=== PATIENT | female | born 1995 | race Caucasian/White ===

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

== ENCOUNTER → 2017-02-16 | Outpatient (CLI) | payer OTHER ==
--- NOTE | 2017-02-17 09:11 | MR ---
EXAMINATION TYPE: MR brain wo con DATE OF EXAM: 02/16/2017 COMPARISON: 09/12/2011 HISTORY: Amnesia/Memory disorder T1-weighted sagittal, T2, FLAIR, and diffusion axial, and T2 coronal coronal views of the brain are s ubmitted. There is no evidence of acute ischemia. The ventricles, basal cisterns, and sulci overlying the conv exities are consistent with the patient's age. There is no mass effect. Craniocervical junction maintained. Sella turcica has a normal appearance. No cerebellopontine angle mass. Changes of chronic sinusitis noted. There are areas of nonspecific abnormal signal within the white matter the largest in the right parie janina lobe measuring 6 mm unchanged from the previous exam. IMPRESSION: 1. Nonspecific abnormal signal in the white matter. May represent prominent Virchow-Aldair spaces. Oth er etiologies including microvascular ischemia or demyelinating process not entirely excluded. 2. Changes of chronic sinusitis.
== END | disposition home or self-care (01) ==
LOC: RADMRIMAIN 20:44
PROVIDERS: ATTEND Psychiatry & Neurology Neurology
DX: R41.3 Other amnesia (principal); J32.9 Chronic sinusitis, unspecified
CPT/HCPCS: 70551

== ENCOUNTER → 2018-04-09 | Outpatient (CLI) | payer OTHER | LOC: LABWHC1 15:06 | PROVIDERS: ATTEND Obstetrics & Gynecology | DX: Z34.90 Encounter for supervision of normal pregnancy, unspecified, unspecified trimester (principal); Z3A.00 Weeks of gestation of pregnancy not specified | CPT/HCPCS: 36415; 84702 ==

== ENCOUNTER → 2021-04-16 | Outpatient (CLI) | payer BC ==
--- NOTE | 2021-04-17 04:44 | MR ---
EXAMINATION TYPE: MR brain wo con DATE OF EXAM: 04/16/2021 COMPARISON: 02/16/2017 HISTORY: Numbness of legs and arms for several years. Multiplanar multiecho imaging of the brain without contrast. Ventricles have normal size. There is no mass effect nor midline shift. There is no sign of intracran ial hemorrhage. Diffusion images show no evidence of an acute infarct. Sierra-white matter structures h ave normal signal pattern. There is no evidence of cerebral edema. Brainstem is intact. Corpus callos um is intact. Sella turcica appears normal. There is no evidence of orbital mass. IMPRESSION: Negative MR scan of the brain. No adverse change compared to old exam.
== END | disposition home or self-care (01) ==
LOC: RADMRIMAIN 19:55
PROVIDERS: ATTEND Physician Assistant
DX: R20.0 Anesthesia of skin (principal)
CPT/HCPCS: 70551

== ENCOUNTER 2022-09-12 10:26 | Emergency (ER) | payer BC, OTHER ==
[2022-09-12 10:44] VITALS: TEMP 97.3
[2022-09-12] MEDS ORDERED: SODIUM CHLORIDE 0.9% 1,000 ML IV ONE (11:31)
[2022-09-12] MEDS ORDERED: ONDANSETRON 4 MG/2 ML VIAL IVP STA (11:31)
--- NOTE | 2022-09-12 11:40 | ED ---
General Adult HPI - General Chief complaint: Nausea/Vomiting/Diarrhea Stated complaint: vomiting - 6 weeks Time Seen by Provider: 09/12/22 11:10 Source: patient, RN notes reviewed Mode of arrival: ambulatory Limitations: no limitations - History of Present Illness Initial comments: 26-year-old female who is presents to the emergency department with a chief complaint of nausea and vomiting. Patient reports that her symptoms started approximately one week ago. She reports that she takes fluoxetine and other mood stabilizers and has not been taking her antipsychotics for 1 week. She reports her last menstrual period was 08/01/2022. She reports that she is unable to make an appointment with her psychiatrist as they do not h ave any open appointments for "months." She denies any dizziness, lightheadedness, chest pain, shortness of breath, abdominal pain. She denies any vaginal bleeding, vaginal cramping, low back pain. - Related Data Home Medications Medication Instructions Recorded Confirmed DULoxetine HCL [Cymbalta] 60 mg PO DAILY 09/12/22 09/12/22 Ferrous Sulfate [Feosol] 325 mg PO DAILY 09/12/22 09/12/22 Omeprazole [PriLOSEC] 20 mg PO DAILY 09/12/22 09/12/22 Topiramate [Topamax] 25 mg PO BID 09/12/22 09/12/22 cloNIDine HCL [Catapres] 0.15 mg PO HS 09/12/22 09/12/22 lamoTRIgine [LaMICtal] 100 mg PO DAILY 09/12/22 09/12/22 Previous Rx's Medication Instructions Recorded DULoxetine HCL [Cymbalta] 60 mg PO DAILY #30 cap 09/12/22 Allergies Allergy/AdvReac Type Severity Reaction Status Date / Time azithromycin Allergy Rash/Hives Verified 09/12/22 12:18 [From Zithromax Z-Roe] Review of Systems ROS Statement: Those systems with pertinent positive or pertinent negative responses have been documented in the HPI. ROS Other: All systems not noted in ROS Statement are negative. Past Medical History Past Medical History: Asthma History of Any Multi-Drug Resistant Organisms: None Reported Additional Past Surgical History / Comment(s): Heart Past Psychological History: No Psychological Hx Reported Smoking Status: Never smoker Past Alcohol Use History: None Reported Past Drug Use History: None Reported General Exam Limitations: no limitations General appearance: alert, in no apparent distress Head exam: Present: atraumatic, normocephalic, normal inspection Eye exam: Present: normal appearance, PERRL, EOMI. Absent: scleral icterus, conjunctival injection, periorbital swelling ENT exam: Present: normal exam, mucous membranes moist Neck exam: Present: normal inspection. Absent: tenderness, meningismus, lymphadenopathy Respiratory exam: Present: normal lung sounds bilaterally. Absent: respiratory distress, wheezes, rales, rhonchi, stridor Cardiovascular Exam: Present: regular rate, normal rhythm, normal heart sounds. Absent: systolic murmur, diastolic murmur, rubs, gallop, clicks GI/Abdominal exam: Present: soft, normal bowel sounds. Absent: distended, tenderness, guarding, rebound, rigid Extremities exam: Present: normal inspection, full ROM, normal capillary refill. Absent: tenderness, pedal edema, joint swelling, calf tenderness Back exam: Present: normal inspection Neurological exam: Present: alert, oriented X3, CN II-XII intact Psychiatric exam: Present: normal affect, normal mood Skin exam: Present: warm, dry, intact, normal color. Absent: rash Course Vital Signs 09/12/22 09/12/22 09/12/22 10:42 14:30 15:30 Temperature 97.3 F L Pulse Rate 83 79 80 Respiratory 18 18 16 Rate Blood Pressure 92/62 108/70 111/75 O2 Sat by Pulse 100 100 100 Oximetry Medical Decision Making - Medical Decision Making Was pt. sent in by a medical professional or institution (, PA, BUS ESCORT, urgent care, hospital, or detention...) When possible be specific @ -[No] Did you speak to anyone other than the patient for history (EMS, parent, family, police, friend...)? What history was obtained from this source @ -[No] Did you review nursing and triage notes (agree or disagree)? Why? @ -[I reviewed and agree with nursing and triage notes] Were old charts reviewed (outside hosp., previous admission, EMS record, old EKG, old radiological studies, urgent care reports/EKG's, detention records)? Report findings @ -[No old charts were reviewed] Differential Diagnosis (chest pain, altered mental status, abdominal pain women, abdominal pain men, vaginal bleeding, weakness, fever, dyspnea, syncope, headache, dizziness, GI bleed, back pain, seizure, CVA, palpatations, mental health, musculoskeletal)? @ -[not applicable] EKG interpreted by me (3pts min.). @ -[As above] X-rays interpreted by me (1pt min.). @ -[None done] CT interpreted by me (1pt min.). @ -[None done] U/S interpreted by me (1pt. min.). @ -[None done] What testing was considered but not performed or refused? (CT, X-rays, U/S, labs)? Why? @ -[None] What meds were considered but not given or refused? Why? @ -[None] Did you discuss the management of the patient with other professionals (professionals i.e. , PA, BUS ESCORT, lab, RT, psych nurse, clinical social worker, professor of history, teacher, community service officer coordinator, wrapper caser)? Give summary @ -[No] Was smoking cessation discussed for >3mins.? @ -[No] Was critical care preformed (if so, how long)? @ -[No] Were there social determinants of health that impacted care today? How? (Homelessness, low income, unemployed, alcoholism, drug addiction, transportation, low edu. Level, literacy, decrease access to med. care, retirement, rehab)? @ -[No] Was there de-escalation of care discussed even if they declined (Discuss DNR or withdrawal of care, Hospice)? DNR status @ -[No] What co-morbidities impacted this encounter? (DM, HTN, Smoking, COPD, CAD, Cancer, CVA, ARF, Chemo, Hep., AIDS, mental health diagnosis, sleep apnea, morbid obesity)? @ -[None] Was patient admitted / discharged? Hospital course, mention meds given and route, prescriptions, significant lab abnormalities, going to OR and other pertinent info. @ -Discharged. This is a 24-year-old male who presents to the emergency department with medication re-fill.. Patient had a thorough history and physical exam performed while in the ED. Physical exam essentially unremarkable heart rate regular rate and rhythm, lungs clear to all physician bilaterally abdomen is soft and nontender. Patient had lab work which was essentially unremarkable. She was given 1 L IV fluids and Zofran with symptomatic relief. She was given a prescription for Cymbalta. I discussed the results in detail with the patient verbalized understanding and all questions were addressed. Return precautions were discussed at length. He was discharged in stable condition. He was encouraged to follow-up with PCP in 1-2 days Undiagnosed new problem with uncertain prognosis? @ -[No] Drug Therapy requiring intensive monitoring for toxicity (Heparin, Nitro, Insulin, Cardizem)? @ -[No] Were any procedures done? @ -[No] Diagnosis/symptom? @ -nausea and vomiting - medication re-fill Acute, or Chronic, or Acute on Chronic? @ -acute Uncomplicated (without systemic symptoms) or Complicated (systemic symptoms)? @ -uncomplicated Side effects of treatment? @ -[No] Exacerbation, Progression, or Severe Exacerbation? @ -[No] Poses a threat to life or bodily function? How? (Chest pain, USA, SC, pneumonia, PE, COPD, DKA, ARF, appy, cholecystitis, CVA, Diverticulitis, Homicidal, Suicidal, threat to staff... and all critical care pts) @ -low likelihood - Lab Data Result diagrams: 09/12/22 11:59 09/12/22 11:30 Lab Results 09/12/22 09/12/22 09/12/22 Range/Units 11:30 11:59 11:59 WBC 8.9 (3.8-10.6) k/uL RBC 4.71 (3.80-5.40) m/uL Hgb 14.2 (11.4-16.0) gm/dL Hct 43.0 (34.0-46.0) % MCV 91.2 (80.0-100.0) fL MCH 30.1 (25.0-35.0) pg MCHC 33.0 (31.0-37.0) g/dL RDW 12.0 (11.5-15.5) % Plt Count 290 (150-450) k/uL MPV 7.8 Neutrophils % 68 % Lymphocytes % 23 % Monocytes % 6 % Eosinophils % 1 % Basophils % 0 % Neutrophils # 6.1 (1.3-7.7) k/uL Lymphocytes # 2.1 (1.0-4.8) k/uL Monocytes # 0.5 (0-1.0) k/uL Eosinophils # 0.1 (0-0.7) k/uL Basophils # 0.0 (0-0.2) k/uL Sodium 137 (137-145) mmol/L Potassium 5.0 (3.5-5.1) mmol/L Chloride 105 (98-107) mmol/L Carbon Dioxide 20 L (22-30) mmol/L Anion Gap 12 mmol/L BUN 9 (7-17) mg/dL Creatinine 0.42 L (0.52-1.04) mg/dL Est GFR (CKD-EPI)AfAm >90 (>60 ml/min/1.73 sqM) Est GFR (CKD-EPI)NonAf >90 (>60 ml/min/1.73 sqM) Glucose 76 (74-99) mg/dL Calcium 9.7 (8.4-10.2) mg/dL Total Bilirubin 2.0 H (0.2-1.3) mg/dL AST 27 (14-36) U/L ALT 15 (4-34) U/L Alkaline Phosphatase 64 (38-126) U/L Total Protein 8.0 (6.3-8.2) g/dL Albumin 4.6 (3.5-5.0) g/dL HCG, Quant 06057.5 mIU/mL Urine Color Light Yellow Urine Appearance Clear (Clear) Urine pH 5.5 (5.0-8.0) Ur Specific [place] 1.005 (1.001-1.035) Urine Protein Negative (Negative) Urine Glucose (UA) Negative (Negative) Urine Ketones 1+ H (Negative) Urine Blood Negative (Negative) Urine Nitrite Negative (Negative) Urine Bilirubin Negative (Negative) Urine Urobilinogen <2.0 (<2.0) mg/dL Ur Leukocyte Esterase Negative (Negative) Urine HCG, Qual (Not Detectd) 09/12/22 Range/Units 11:59 WBC (3.8-10.6) k/uL RBC (3.80-5.40) m/uL Hgb (11.4-16.0) gm/dL Hct (34.0-46.0) % MCV (80.0-100.0) fL MCH (25.0-35.0) pg MCHC (31.0-37.0) g/dL RDW (11.5-15.5) % Plt Count (150-450) k/uL MPV Neutrophils % % Lymphocytes % % Monocytes % % Eosinophils % % Basophils % % Neutrophils # (1.3-7.7) k/uL Lymphocytes # (1.0-4.8) k/uL Monocytes # (0-1.0) k/uL Eosinophils # (0-0.7) k/uL Basophils # (0-0.2) k/uL Sodium (137-145) mmol/L Potassium (3.5-5.1) mmol/L Chloride (98-107) mmol/L Carbon Dioxide (22-30) mmol/L Anion Gap mmol/L BUN (7-17) mg/dL Creatinine (0.52-1.04) mg/dL Est GFR (CKD-EPI)AfAm (>60 ml/min/1.73 sqM) Est GFR (CKD-EPI)NonAf (>60 ml/min/1.73 sqM) Glucose (74-99) mg/dL Calcium (8.4-10.2) mg/dL Total Bilirubin (0.2-1.3) mg/dL AST (14-36) U/L ALT (4-34) U/L Alkaline Phosphatase (38-126) U/L Total Protein (6.3-8.2) g/dL Albumin (3.5-5.0) g/dL HCG, Quant mIU/mL Urine Color Urine Appearance (Clear) Urine pH (5.0-8.0) Ur Specific [place] (1.001-1.035) Urine Protein (Negative) Urine Glucose (UA) (Negative) Urine Ketones (Negative) Urine Blood (Negative) Urine Nitrite (Negative) Urine Bilirubin (Negative) Urine Urobilinogen (<2.0) mg/dL Ur Leukocyte Esterase (Negative) Urine HCG, Qual Detected (Not Detectd) Disposition Clinical Impression: Medication refill Disposition: HOME SELF-CARE Condition: Stable Instructions (If sedation given, give patient instructions): Acute Nausea and Vomiting (ED) Additional Instructions: These return to the nearest emergency department if symptoms worsen or persist Follow-up with psychiatrist within 1-2 days Prescriptions: DULoxetine HCL [Cymbalta] 60 mg PO DAILY #30 cap Is patient prescribed a controlled substance at d/c from ED?: No Referrals: Florian Weaver MD [Primary Care Provider] - 1-2 days Time of Disposition: 15:19
[2022-09-12 12:33] LABS: Basophils % (A) 0 %; Eosinophils # (A) 0.1 k/uL (0-0.7); Eosinophils % (A) 1 %; HGB 14.2 gm/dL (11.4-16.0); Lymphocytes # (A) 2.1 k/uL (1.0-4.8); Lymphocytes % (A) 23 %; MCH 30.1 pg (25.0-35.0); MCV 91.2 fL (80.0-100.0); Mean Platelet Volume 7.8; Monocytes # (A) 0.5 k/uL (0-1.0); Monocytes % (A) 6 %; Neutrophils # (A) 6.1 k/uL (1.3-7.7); Neutrophils % (A) 68 %; Platelet Count 290 k/uL (150-450); RBC 4.71 m/uL (3.80-5.40); WBC 8.9 k/uL (3.8-10.6)
[2022-09-12 13:06] LABS: ALT 15 U/L (4-34); African American GFR (CKD) >90 (>60 ml/min/1.73 sqM); Albumin 4.6 g/dL (3.5-5.0); Anion Gap 12 mmol/L; Blood Urea Nitrogen 9 mg/dL (7-17); Calcium 9.7 mg/dL (8.4-10.2); Carbon Dioxide 20 mmol/L (22-30); Chloride 105 mmol/L (98-107); Glucose 76 mg/dL (74-99); Non-African American GFR(CKD) >90 (>60 ml/min/1.73 sqM); Sodium 137 mmol/L (137-145)
[2022-09-12 13:07] LABS: AST 27 U/L (14-36); Alkaline Phosphatase 64 U/L (38-126)
[2022-09-12 14:02] LABS: HCG,Quantitative Serum 20583.5 mIU/mL
[2022-09-12 15:00] LABS: Appearance,Urine Clear (Clear); Bilirubin,Urine Negative (Negative); Blood,Urine Negative (Negative); Color,Urine Light Yellow; Glucose,Urine (UA) Negative (Negative); Ketones,Urine 1+ (Negative); Leukocyte Esterase,Urine Negative (Negative); Nitrite,Urine Negative (Negative); PH, Urine 5.5 (5.0-8.0); Protein,Urine Negative (Negative); Specific Gravity,Urine 1.005 (1.001-1.035); Urobilinogen,Urine <2.0 mg/dL (<2.0)
[2022-09-12 15:44] VITALS: BP 111/75; PULSE 80; RESP 16
== END 2022-09-12 15:30 | disposition home or self-care (01) ==
LOC: EC 10:26
DX: O21.9 Vomiting of pregnancy, unspecified (principal); O99.511 Diseases of the respiratory system complicating pregnancy, first trimester; J45.909 Unspecified asthma, uncomplicated; Z76.0 Encounter for issue of repeat prescription; Z3A.01 Less than 8 weeks gestation of pregnancy; Z79.899 Other long term (current) drug therapy; Z88.1 Allergy status to other antibiotic agents
CPT/HCPCS: 36415; 80053; 85025; 81003; 81025; 84702; 99284; 96374; 96361; J2405

== ENCOUNTER 2022-12-13 12:51 | Outpatient (CLI) | payer OTHER ==
[2022-12-13 13:46] VITALS: BP 111/64; PULSE 90; RESP 16; TEMP 97.3
--- NOTE | 2022-12-13 18:33 | P.MSEPDOC ---
Presenting Problems - Arrival Data Date of Arrival on Unit: 12/13/22 Time of Arrival on Unit: 12:45 Mode of Transport: Ambulatory - Complaint OB-Reason for Admission/Chief Complaint: Decreased Movement Medical History - Gestational Age Gestational Age by JOSÉ LUIS (wks/days): 19 Weeks and 1 Days - History Comment: not feeling baby move Review of Systems - Review of Systems Constitutional: No problems Breast: No problems ENT: No problems Cardiovascular: No problems Respiratory: No problems Gastrointestinal: No problems Genitourinary: No problems Musculoskeletal: No problems Neurological: No problems Skin: No problems Vital Signs - Temperature Temperature: 97.3 F Temperature Source: Temporal Artery Scan - Pulse Right Apical Pulse Rate: 90 Pulse Assessment Method: Automatic Cuff - Respirations Respiratory Rate: 16 Oxygen Delivery Method: Room Air - Blood Pressure Right Arm Blood Pressure: 111/64 Blood Pressure Mean: 79 Blood Pressure Source: Automatic Cuff Medical Screen Scoring - Uterine Contractions Intensity: Absent - Assessment - Baby A Baseline FHR: 150 Heart Rate - NICHD Category: Category I (Normal) Physician Notification - Physician Notified Physician Notified Date: 12/13/22 Physician Notified Time: 13:35 Physician: Zoya Dickson Order Received: Yes (dischargem instructions) Maternal Triage Index - Scheduled/Requesting Priority 5 Scheduled/Requesting Priority 5: Yes Criteria Met for Priority 5: came from office. 19 weeks. feeling baby now Disposition - Disposition OB Disposition: Discharge to home, Written follow up instructions reviewed Discharge Date: 12/13/22 Discharge Time: 13:50 I agree with the RN Medical Screening Exam: Yes Case reviewed; plan agreed upon as documented in EMR&OBIX.: Yes Diagnosis: DECREASED MOVEMENTS, SECOND TRIMESTER, UNSP
== END 2022-12-13 13:50 | disposition home or self-care (01) ==
LOC: FBPOP 12:51
PROVIDERS: ATTEND Obstetrics & Gynecology
DX: O36.8120 Decreased fetal movements, second trimester, not applicable or unspecified (principal); Z3A.19 19 weeks gestation of pregnancy; Z91.013 Allergy to seafood; Z88.1 Allergy status to other antibiotic agents
CPT/HCPCS: 99213

== ENCOUNTER → 2023-04-07 | Outpatient (CLI) | payer OTHER ==
[2023-04-07 17:07] VITALS: BP 127/77; PULSE 93; RESP 17
--- NOTE | 2023-06-18 16:04 | P.MSEPDOC ---
Presenting Problems - Arrival Data Date of Arrival on Unit: 04/07/23 Time of Arrival on Unit: 15:15 Mode of Transport: Ambulatory - Complaint OB-Reason for Admission/Chief Complaint: Rule Out SROM Comment: pt presents to triage for possible SROM at 1330 today, states she is still leaking Medical History - Information : 1 Para: 0 Term: 0 : 0 Abortions: Spontaneous or Elective: 0 Number of Living Children: 0 - Gestational Age Gestational Age by JOSÉ LUIS (wks/days): 35 Weeks and 4 Days Review of Systems - Review of Systems Constitutional: No problems Breast: No problems ENT: No problems Cardiovascular: No problems Respiratory: No problems Gastrointestinal: No problems Genitourinary: No problems Musculoskeletal: No problems Neurological: No problems Skin: No problems Vital Signs - Pulse Right Brachial Pulse Rate: 93 Pulse Assessment Method: Automatic Cuff - Respirations Respiratory Rate: 17 Oxygen Delivery Method: Room Air - Blood Pressure Right Arm Blood Pressure: 127/77 Blood Pressure Mean: 93 Blood Pressure Source: Automatic Cuff Medical Screen Scoring - Cervical Exam Dilation (cm): 0 - Uterine Contractions Intensity: Mild Resting: Soft to palpation - Assessment - Baby A Baseline FHR: 150 Heart Rate - NICHD Category: Category I (Normal) NST: Reactive Physician Notification - Physician Notified Physician Notified Date: 04/07/23 Physician Notified Time: 16:20 Physician: Zoya Dickson Order Received: Yes - Notification Comment Comment: amniosure negative, cervical exam closed and thick, reactive nst, orders to discharge pt home follow up on Monday in the office with Dr. Garcia and MFM on 04/13 at scheduled appt Maternal Triage Index - Maternal Triage Index Presenting for scheduled procedure w/no complaint: No - Stat/Priority 1 Stat Priority 1: No - Urgent/Priority 2 Urgent Priority 2: No - Prompt/Priority 3 Prompt Priority 3: Yes Criteria Met for Priority 3: pt presents to triage for possible SROM at 1330 today, states she is still leaking Disposition - Disposition OB Disposition: Triage, Discharge to home, Written follow up instructions reviewed Discharge Date: 04/07/23 Discharge Time: 16:35 I agree with the RN Medical Screening Exam: Yes Case reviewed; plan agreed upon as documented in EMR&OBIX.: Yes Diagnosis: FALSE LABOR BEFORE 37 COMPLETED WEEKS OF GEST, THIRD TRI
== END ==
LOC: FBPOP 15:15
PROVIDERS: ATTEND Obstetrics & Gynecology
DX: Z53.9 Procedure and treatment not carried out, unspecified reason (principal)
CPT/HCPCS: 59025; 84112; G0463; 99213

== ENCOUNTER 2023-05-01 06:00 | Inpatient (IN) | payer BC, OTHER ==
[2023-05-01] MEDS ORDERED: TRANEXAMIC 1,000 MG/100ML-NACL 1,000 MG in EMPTY BAG 1 BAG IV PRN (06:30)
[2023-05-01] MEDS ORDERED: CARBOPROST TROMETHAMINE 250 MCG/ML 1 ML AMP IM PRN (06:30)
[2023-05-01] MEDS ORDERED: miSOPROStoL 200 MCG TAB PO PRN (06:30)
[2023-05-01] MEDS ORDERED: OXYTOCIN 10 UNIT/ML 1 ML VIAL IM PRN (06:30)
[2023-05-01] MEDS ORDERED: TERBUTALINE 1 MG/ML VIAL SQ PRN (06:30)
[2023-05-01] MEDS ORDERED: OXYTOCIN 30 UNITS/500 ML NS 30 UNIT in SALINE 1 500ML.BAG IV SCH ×2 (06:30→17:00)
[2023-05-01] MEDS ORDERED: METHYLERGONOVINE 0.2 MG/ML 1 ML AMP IM PRN (06:30)
[2023-05-01] MEDS ORDERED: LIDOCAINE 0.5% (PF) 5 MG/ML (50 ML SDV) SQ PRN (06:30)
[2023-05-01 06:48] LABS: Basophils % (A) 0 %; Eosinophils # (A) 0.1 k/uL (0-0.7); Eosinophils % (A) 1 %; HCT 35.6 % (34.0-46.0); HGB 12.1 gm/dL (11.4-16.0); Lymphocytes # (A) 2.4 k/uL (1.0-4.8); Lymphocytes % (A) 27 %; MCH 31.6 pg (25.0-35.0); MCHC 33.9 g/dL (31.0-37.0); MCV 93.2 fL (80.0-100.0); Mean Platelet Volume 9.5; Monocytes # (A) 0.5 k/uL (0-1.0); Monocytes % (A) 6 %; Neutrophils # (A) 5.8 k/uL (1.3-7.7); Neutrophils % (A) 64 %; Platelet Count 186 k/uL (150-450); RBC 3.82 m/uL (3.80-5.40); RDW 13.1 % (11.5-15.5); WBC 9.1 k/uL (3.8-10.6)
[2023-05-01] MEDS: LACTATED RINGERS 1,000 ML IV SCH ×2 (07:01→11:17)
--- NOTE | 2023-05-01 12:39 | P.ANPRN ---
Procedure Note - Anesthesia - Epidural/Spinal Epidural Continuous Time Out Performed: Yes Date of Procedure: 05/01/23 Procedure Start Time: 10:45 Procedure Stop Time: 10:55 Location of Patient: OB Indication: Acute Post-Operative Pain, Analgesia, Requested by Surgeon Sedation Type: Awake Preparation: Sterile Prep Position: Sitting Catheter Depth at Skin (cm): 10 Catheter: Indwelling Needle Guage: 18 Injectate: 3 ml of 1.5% Lidocaine with epi ------negative S/S Blood Aspirated: No Pain Paresthesia on Injection Noted: No Events: Uneventful and Well Tolerated
[2023-05-01] MEDS ORDERED: BENZOCAINE/MENTHOL SPRAY 1 GM/SPRAY AEROSOL TOPICAL PRN (16:55)
[2023-05-01] MEDS ORDERED: SIMETHICONE 80 MG CHEWABLE PO PRN (16:55)
[2023-05-01] MEDS ORDERED: LANOLIN CREAM 5 GM TUBE TOPICAL PRN (16:55)
[2023-05-01] MEDS ORDERED: HYDROCORTISONE 2.5% RECTAL CREAM 30 GM TUBE RECTAL PRN (16:55)
[2023-05-01] MEDS ORDERED: diphenhydrAMINE 50 MG/ML 1 ML VIAL IVP PRN ×2 (16:55)
[2023-05-01] MEDS ORDERED: diphenhydrAMINE 25 MG CAP PO PRN (16:55)
[2023-05-01] MEDS ORDERED: diphenhydrAMINE 50 MG CAP PO PRN (16:55)
[2023-05-01] MEDS ORDERED: ACETAMINOPHEN TAB 325 MG TAB PO PRN (16:55)
[2023-05-01] MEDS ORDERED: ZOLPIDEM 5 MG TAB PO PRN (16:55)
--- NOTE | 2023-05-01 16:59 | P.HPOB ---
History of Present Illness H&P Date: 05/01/23 Chief Complaint: Induction of labor 27 year old presents at 39 weeks for induction of labor. She was 1 cm dilated, 80% effaced, -2 station. She is tiffanie irregularly. heart tones 140 with moderate variability and reactive. Review of Systems All systems: negative Constitutional: Denies chills, Denies fever Eyes: denies blurred vision, denies pain Ears, nose, mouth and throat: Denies headache, Denies sore throat Cardiovascular: Denies chest pain, Denies shortness of breath Respiratory: Denies cough Gastrointestinal: Denies abdominal pain, Denies diarrhea, Denies nausea, Denies vomiting Genitourinary: Denies dysuria, Denies hematuria Musculoskeletal: Denies myalgias Integumentary: Denies pruritus, Denies rash Neurological: Denies numbness, Denies weakness Psychiatric: Denies anxiety, Denies depression Endocrine: Denies fatigue, Denies weight change Past Medical History Past Medical History: Asthma, Fibromyalgia Additional Past Medical History / Comment(s): Arthritis, Autism History of Any Multi-Drug Resistant Organisms: None Reported Past Surgical History: Ablation Additional Past Surgical History / Comment(s): Heart Past Anesthesia/Blood Transfusion Reactions: No Reported Reaction Additional Past Anesthesia/Blood Transfusion Reaction / Comment(s): Woke up during heart surgery under anestesia Past Psychological History: No Psychological Hx Reported Smoking Status: Former smoker Past Alcohol Use History: None Reported Past Drug Use History: Marijuana Additional Drug Use History / Comment(s): Previous use Medications and Allergies Home Medications Medication Instructions Recorded Confirmed Type DULoxetine HCL [Cymbalta] 60 mg PO DAILY #30 cap 09/12/22 05/01/23 Rx lamoTRIgine [LaMICtal] 100 mg PO DAILY 09/12/22 05/01/23 History Aspirin [Children's Aspirin] 81 mg PO DAILY 04/07/23 05/01/23 History Omeprazole 20 mg PO DAILY 04/07/23 05/01/23 History Vit No.179/Iron/Folic 1 each PO DAILY 04/07/23 05/01/23 History [ Tablet] Ferrous Sulfate [Iron] 1 tab PO DAILY 05/01/23 05/01/23 History Topiramate 1 tab PO BID 05/01/23 05/01/23 History Allergies Allergy/AdvReac Type Severity Reaction Status Date / Time azithromycin Allergy Rash/Hives Verified 04/21/23 19:12 [From Zithromax Z-Roe] shellfish derived [Shellfish] Allergy Anaphylaxis Verified 04/21/23 19:12 Exam Osteopathic Statement: *. No significant issues noted on an osteopathic structural exam other than those noted in the History and Physical/Consult. Vital Signs Pulse Resp BP 05/01/23 16:46 68 16 123/74 Intake and Output 05/01/23 05/01/23 05/01/23 06:59 14:59 22:59 Output Total 250 Balance -250 Output: Estimated Blood Loss 250 Other: # Voids 1 Weight 68.039 kg Heart: Regular rate and rhythm Lungs: Clear to auscultation bilaterally Abdomen: Soft, nontender Extremities: Negative Homans sign Results Result Diagrams: 05/01/23 06:38 Assessment and Plan (1) Elective induction of labor planned Current Visit: Yes Status: Acute Code(s): [id number] - SNOMED Code(s): 420906818 Plan: 1. Induction of labor with amniotomy and Pitocin 2. Anticipate normal vaginal delivery.
[2023-05-01] MEDS ORDERED: Rhogam IMMUNE GLOBULIN 1,500 UNIT/1 ML IM ONE (17:00)
--- NOTE | 2023-05-01 17:00 | P.PROBDLV ---
Vaginal Delivery Note - . Vaginal Delivery Note: 27 year old presents at 39 weeks for induction of labor. She was 1 cm dilated, 80% effaced, -2 station. She is tiffanie irregularly. heart tones 140 with moderate variability and reactive. Amniotomy was performed at 7:19 AM and clear fluid noted. When she was uncomfortable in about 3 cm dilated she got an epidural. Her cervix was completely dilated at 1510. She pushed, delivered a viable female over intact perineum under epidural anesthesia at 1623. Head delivered OA, anterior shoulder delivered gentle downward guidance all lap posterior shoulder and rest of body. Nose and mouth bulb suctioned, cord clamped and cut, infant placed mother's abdomen. Apgars 9, 9, weight 7 lbs. 4 oz. Placenta delivered spontaneously, intact with three-vessel cord at 1625. Vagina, cervix, perineum inspected. Second-degree midline laceration was repaired with 2-0 Vicryl and 3-0 Vicryl. Estimated blood loss 250 mL. Mother and baby in stable condition.
[2023-05-01 17:08] VITALS: RESP 16
[2023-05-01] MEDS: SENNOSIDES-DOCUSATE SODIUM 1 EACH TAB PO SCH (20:20)
[2023-05-02] MEDS: LACTATED RINGERS 1,000 ML IV SCH (00:03)
[2023-05-02] MEDS: IBUPROFEN 600 MG TAB PO PRN ×3 (00:10→16:27)
--- NOTE | 2023-05-02 07:43 | P.DS ---
Providers Date of admission: 05/01/23 06:11 Expected date of discharge: 05/02/23 Attending physician: Verena Oro Primary care physician: Stated None - Discharge Diagnosis(es) (1) Elective induction of labor planned Current Visit: Yes Status: Resolved (2) Normal vaginal delivery Current Visit: Yes Status: Acute Hospital Course: Is and presented for induction of labor at 39 weeks. She underwent a normal vaginal delivery. Was course has been uneventful. She does not nausea, vomiting, chest pain, shortness of breath or calf pain. Patient will be discharged home day #1 in stable condition to follow-up with me in 6 weeks. Plan - Discharge Summary New Discharge Prescriptions: New Ibuprofen [Motrin] 600 mg PO Q6HR PRN #30 tab PRN Reason: Mild Pain Or Fever >= 100.5 No Action lamoTRIgine [LaMICtal] 100 mg PO DAILY DULoxetine HCL [Cymbalta] 60 mg PO DAILY #30 cap Omeprazole 20 mg PO DAILY Aspirin [Children's Aspirin] 81 mg PO DAILY Ferrous Sulfate [Iron] 1 tab PO DAILY Vit No.179/Iron/Folic [ Tablet] 1 each PO DAILY Topiramate 1 tab PO BID Discharge Medication List DULoxetine HCL [Cymbalta] 60 mg PO DAILY #30 cap 09/12/22 [Rx] lamoTRIgine [LaMICtal] 100 mg PO DAILY 09/12/22 [History] Aspirin [Children's Aspirin] 81 mg PO DAILY 04/07/23 [History] Omeprazole 20 mg PO DAILY 04/07/23 [History] Vit No.179/Iron/Folic [ Tablet] 1 each PO DAILY 04/07/23 [History] Ferrous Sulfate [Iron] 1 tab PO DAILY 05/01/23 [History] Topiramate 1 tab PO BID 05/01/23 [History] Ibuprofen [Motrin] 600 mg PO Q6HR PRN #30 tab 05/02/23 [Rx] Follow up Appointment(s)/Referral(s): Verena Oro DO [Doctor of Osteopathic Medicine] - 6 Weeks (PP 06/13/2023 @10:45) Discharge Disposition: HOME SELF-CARE
[2023-05-02 07:54] LABS: Basophils # (A) 0.1 k/uL (0-0.2); Basophils % (A) 0 %; Eosinophils # (A) 0.1 k/uL (0-0.7); Eosinophils % (A) 1 %; HCT 32.2 % (34.0-46.0); HGB 10.3 gm/dL (11.4-16.0); Hypochromasia Slight; Lymphocytes # (A) 2.7 k/uL (1.0-4.8); Lymphocytes % (A) 18 %; MCH 31.2 pg (25.0-35.0); MCV 97.7 fL (80.0-100.0); Mean Platelet Volume 9.3; Monocytes # (A) 0.8 k/uL (0-1.0); Monocytes % (A) 5 %; Neutrophils # (A) 11.2 k/uL (1.3-7.7); Neutrophils % (A) 73 %; Platelet Count 156 k/uL (150-450); RDW 13.1 % (11.5-15.5); WBC 15.4 k/uL (3.8-10.6)
[2023-05-02] MEDS: SENNOSIDES-DOCUSATE SODIUM 1 EACH TAB PO SCH (08:20)
[2023-05-02 17:40] VITALS: BP 117/77; PULSE 85; TEMP 98.1
== END 2023-05-02 18:00 | disposition home or self-care (01) | DRG 806 ==
LOC: 4FBP 06:11
PROVIDERS: ADMIT Obstetrics & Gynecology; ATTEND Obstetrics & Gynecology
PROC: 3E0234Z Introduction of Serum, Toxoid and Vaccine into Muscle, Percutaneous Approach (ICD-10-PCS; principal; 2023-05-01)
PROC: 3E033VJ Introduction of Other Hormone into Peripheral Vein, Percutaneous Approach (ICD-10-PCS; principal; 2023-05-01)
PROC: 0KQM0ZZ Repair Perineum Muscle, Open Approach (ICD-10-PCS; principal; 2023-05-01)
PROC: 10E0XZZ Delivery of Products of Conception, External Approach (ICD-10-PCS; principal; 2023-05-01)
PROC: 10907ZC Drainage of Amniotic Fluid, Therapeutic from Products of Conception, Via Natural or Artificial Opening (ICD-10-PCS; principal; 2023-05-01)
DX: O26.893 Other specified pregnancy related conditions, third trimester (principal); F84.0 Autistic disorder; O99.354 Diseases of the nervous system complicating childbirth; Z67.11 Type A blood, Rh negative; O70.1 Second degree perineal laceration during delivery; O99.52 Diseases of the respiratory system complicating childbirth; J45.909 Unspecified asthma, uncomplicated; O99.344 Other mental disorders complicating childbirth; M79.7 Fibromyalgia; Z87.891 Personal history of nicotine dependence; Z79.899 Other long term (current) drug therapy; Z79.82 Long term (current) use of aspirin; Z88.1 Allergy status to other antibiotic agents; Z3A.39 39 weeks gestation of pregnancy; Z37.0 Single live birth
CPT/HCPCS: 85025; 85461; 86850; 86870; 86880; 86900; 86901

== ENCOUNTER 2024-02-23 01:48 | Emergency (ER) | payer BC, OTHER ==
[2024-02-23 01:53] VITALS: RESP 18; TEMP 97.9
[2024-02-23] MEDS: DEXAMETHASONE SOD PHOSPHATE 10 MG/ML 1 ML VIAL IM STA (02:38)
[2024-02-23] MEDS: HYDROcodone/APAP 7.5-325MG 1 EACH TAB PO ONE (02:39)
[2024-02-23] MEDS: KETOROLAC 15 MG/ML 1 ML VIAL IM STA (02:39)
[2024-02-23] MEDS: ACET/COD 300 MG/30 MG STARTER PACK 6 TAB BTL PO STA (02:40)
[2024-02-23] MEDS: AMOXIC-POT CLAV 875-125MG 1 EACH TAB PO STA (02:40)
--- NOTE | 2024-02-23 02:45 | ED ---
ENT HPI - General Chief complaint: Dental/Oral Stated complaint: dental pain Time Seen by Provider: 02/23/24 01:54 Source: patient, RN notes reviewed Mode of arrival: ambulatory Limitations: no limitations - History of Present Illness Initial comments: This is a 28-year-old female who presents to the emergency department for a dental abscess. States that it started a couple of days ago. This is on the left side along the upper jawline. She was started on amoxicillin and has only taken 2 doses. However, states that it is not getting any better and she is unable to tolerate the pain. She is taking ibuprofen and Tylenol without any relief. Denies any fevers or chills. She has an appointment next week with a dentist to get a root canal. MD complaint: tooth pain - Related Data Home Medications Medication Instructions Recorded Confirmed lamoTRIgine [LaMICtal] 100 mg PO DAILY 09/12/22 05/01/23 Aspirin [Children's Aspirin] 81 mg PO DAILY 04/07/23 05/01/23 Omeprazole 20 mg PO DAILY 04/07/23 05/01/23 Vit No.179/Iron/Folic 1 each PO DAILY 04/07/23 05/01/23 [ Tablet] Ferrous Sulfate [Iron] 1 tab PO DAILY 05/01/23 05/01/23 Topiramate 1 tab PO BID 05/01/23 05/01/23 Previous Rx's Medication Instructions Recorded DULoxetine HCL [Cymbalta] 60 mg PO DAILY #30 cap 09/12/22 Ibuprofen [Motrin] 600 mg PO Q6HR PRN #30 tab 05/02/23 Amoxic-Pot Clav 875-125Mg 1 tab PO Q12HR 10 Days #20 tab 02/23/24 [Augmentin 875-125] Ketorolac [Toradol] 10 mg PO Q6HR PRN #15 tab 02/23/24 Allergies Allergy/AdvReac Type Severity Reaction Status Date / Time azithromycin Allergy Rash/Hives Verified 02/23/24 01:53 [From Zithromax Z-Roe] shellfish derived [Shellfish] Allergy Anaphylaxis Verified 02/23/24 01:53 Review of Systems ROS Statement: Those systems with pertinent positive or pertinent negative responses have been documented in the HPI. ROS Other: All systems not noted in ROS Statement are negative. Past Medical History Past Medical History: Asthma, Fibromyalgia Additional Past Medical History / Comment(s): Arthritis, Autism History of Any Multi-Drug Resistant Organisms: None Reported Past Surgical History: Ablation Additional Past Surgical History / Comment(s): Heart Past Anesthesia/Blood Transfusion Reactions: No Reported Reaction Additional Past Anesthesia/Blood Transfusion Reaction / Comment(s): Woke up during heart surgery under anestesia Past Psychological History: No Psychological Hx Reported Smoking Status: Never smoker Past Alcohol Use History: None Reported Past Drug Use History: None Reported General Exam Limitations: no limitations General appearance: alert, in no apparent distress Head exam: Present: atraumatic, normocephalic, normal inspection ENT exam: Present: other (Palpable dental abscess along the left upper jawline. No elevation of the tongue or swelling to the floor of the mouth) Respiratory exam: Present: normal lung sounds bilaterally. Absent: respiratory distress, wheezes, rales, rhonchi, stridor Cardiovascular Exam: Present: regular rate, normal rhythm, normal heart sounds. Absent: systolic murmur, diastolic murmur, rubs, gallop, clicks Neurological exam: Present: alert, oriented X3, CN II-XII intact Psychiatric exam: Present: normal affect, normal mood Skin exam: Present: warm, dry, intact, normal color. Absent: rash Course Vital Signs 02/23/24 02/23/24 01:52 02:53 Temperature 97.9 F 97.9 F Pulse Rate 82 91 Respiratory 18 18 Rate Blood Pressure 125/85 120/83 O2 Sat by Pulse 98 98 Oximetry Medical Decision Making - Medical Decision Making This is a 28-year-old female who presents to the emergency department for dental pain. Was pt. sent in by a medical professional or institution? @ -No Did you speak to anyone other than the patient for history? @ -No Did you review nursing and triage notes? @ -Yes, and I agree, it is accurate with regards to the patient's symptoms. Were old charts reviewed? @ -No Differential Diagnosis? @ -Differential Dental Pain: Dental abscess, chipped tooth, dental carries, kd's angina, trigeminal neuralgia, this is not meant to be an all-inclusive list. EKG interpreted by me (3pts min.)? @ -Not obtained X-rays interpreted by me (1pt min.)? @ -Not obtained CT interpreted by me (1pt min.)? @ -Not obtained U/S interpreted by me (1pt. min.)? @ -Not obtained What testing was considered but not performed? (CT, X-rays, U/S, labs)? Why? @ -None What meds were considered but not given? Why? @ -None Did you discuss the management of the patient with other professionals? @ -No Did you reconcile home meds? @ -No Was smoking cessation discussed for >3mins.? @ -No Was critical care preformed (if so, how long)? @ -No Were there social determinants of health that impacted care today? How? (Homelessness, low income, unemployed, alcoholism, drug addiction, transportation, low edu. Level, literacy, decrease access to med. care, [facility], rehab)? @ -No Was there de-escalation of care discussed even if they declined? (Discuss DNR or withdrawal of care, Hospice)? @ -No What co-morbidities impacted this encounter? (DM, HTN, Smoking, COPD, CAD, Cancer, CVA, Hep., AIDS, mental health diagnosis, sleep apnea, morbid obesity)? @ -None Was patient admitted / discharged? @ -Discharged. Physical examination consistent with a dental abscess. She had no elevation of the tongue or swelling to the floor of the mouth to suggest Kd's angina. Advised that we will change her from amoxicillin to Augmentin and this was prescribed. Initial dose administered in the emergency department. Pain was managed while she was here and she was given a prescription for Torad ol to take in place of the ibuprofen in the event it is more effective. She will otherwise follow-up with her dentist as scheduled this week. Case discussed with ED attending Dr. May. Return precautions reviewed in depth, the patient is instructed to return to the emergency department with any new, worsening, or concerning symptoms. Patient verbalized understanding. Undiagnosed new problem with uncertain prognosis? @ -None Drug Therapy requiring intensive monitoring for toxicity (Heparin, Nitro, Insulin, Cardizem)? @ -None Were any procedures done? @ -None Diagnosis/symptom? @ -Dental abscess Acute, or Chronic, or Acute on Chronic? @ -Acute Uncomplicated (without systemic symptoms) or Complicated (systemic symptoms)? @ -Uncomplicated Side effects of treatment? @ -None Exacerbation, Progression, or Severe Exacerbation] @ -Not applicable Poses a threat to life or bodily function? @ -No Disposition Clinical Impression: Dental abscess Disposition: HOME SELF-CARE Instructions (If sedation given, give patient instructions): Dental Abscess (ED) Additional Instructions: Return to the emergency department with any new, worsening, or concerning symptoms. Take the new antibiotic as prescribed for 10 days. Discontinue the one you were originally prescribed. Take the Toradol with Tylenol as needed for pain relief. If you choose to take the Toradol, do not take any other anti- inflammatories such as ibuprofen, take one or the other. Follow-up with your dentist as scheduled. Prescriptions: Amoxic-Pot Clav 875-125Mg [Augmentin 875-125] 1 tab PO Q12HR 10 Days #20 tab Ketorolac [Toradol] 10 mg PO Q6HR PRN #15 tab PRN Reason: Pain Is patient prescribed a controlled substance at d/c from ED?: No Referrals: Florian Weaver MD [Primary Care Provider] - 1-2 days Time of Disposition: 02:45
[2024-02-23 02:58] VITALS: BP 120/83; PULSE 91
== END 2024-02-23 02:59 | disposition home or self-care (01) ==
LOC: EC 01:48
CPT/HCPCS: 96372; 99283